=== PATIENT | male | born 1955 | race Caucasian/White ===

== ENCOUNTER → 2018-04-07 | Outpatient (CLI) | payer OTHER ==
[~2018-04-07] MED LIST: CHOL2000 PO; LACT1CAP35 PO; MAGN250T2 PO; PARO10TA56 PO; ROSU10TA PO
[2018-04-07 09:31] LABS: BASOPHILS # (AUTO) 0.02 x10^3/uL (0-0.1); BASOPHILS % (AUTO) 0 % (0-1); EOSINOPHILS # (AUTO) 0.18 x10^3/uL (0-0.4); EOSINOPHILS % (AUTO) 4 % (1-7); LYMPHOCYTES # (AUTO) 1.37 x10^3/uL (1-3.4); LYMPHOCYTES % (AUTO) 29 % (22-44); MD NO; MEAN CORPUSCULAR HEMOGLOBIN 31.3 pg (27.5-34.5); MEAN CORPUSCULAR HGB CONC 33.7 g/dL (33.2-36.2); MEAN CORPUSCULAR VOLUME 92.8 fL (81-97); MEAN PLATELET VOLUME 7.9 fL (7.4-10.4); MONOCYTES # (AUTO) 0.51 x10^3/uL (0.2-0.8); MONOCYTES % (AUTO) 11 % (2-9); NEUTROPHILS # (AUTO) 2.66 x10^3/uL (1.8-6.8); NEUTROPHILS % (AUTO) 56 % (42-75); PLATELET COUNT 215 x10^3/uL (130-400); RED CELL DISTRIBUTION WIDTH 13.1 % (9.4-14.8)
[2018-04-07 09:38] LABS: INTERNATIONAL NORMALIZED RATIO 0.98 (0.93-1.1); PROTHROMBIN TIME 10.4 Seconds (9.6-11.5)
[2018-04-07 09:39] LABS: MICROSCOPIC NOT IND
[2018-04-07 09:42] LABS: CULTURE INDICATED? NO
[2018-04-07 10:27] LABS: ANION GAP 4 mmol/L (5-15); CALCIUM 9.1 mg/dL (8.5-10.1); CHLORIDE 105 mmol/L (98-107)
[2018-04-07 10:31] LABS: ALANINE AMINOTRANSFERASE 64 U/L (12-78); ALKALINE PHOSPHATASE 56 U/L (45-117); BILIRUBIN,TOTAL 0.6 mg/dL (0.2-1.0); CREATININE 0.88 mg/dL (0.7-1.3); TOTAL PROTEIN 7.7 g/dL (6.4-8.2)
== END | disposition home or self-care (01) ==
LOC: STAR 08:08
PROVIDERS: ATTEND Neurological Surgery
DX: Z01.818 Encounter for other preprocedural examination (principal); M48.062 Spinal stenosis, lumbar region with neurogenic claudication; M54.17 Radiculopathy, lumbosacral region; M48.07 Spinal stenosis, lumbosacral region; M43.10 Spondylolisthesis, site unspecified; M54.16 Radiculopathy, lumbar region
CPT/HCPCS: 36415; 80053; 81003; 85025; 85610; 85730; 93005

== ENCOUNTER 2018-04-19 06:16 | Inpatient (IN) | payer OTHER ==
[~2018-04-19] VITALS: Ht 188 cm; Wt 92.0 kg
[2018-04-19] MEDS ORDERED: LACTATED RINGERS 1,000 ML IV SCH (07:12)
[2018-04-19] MEDS ORDERED: ACETAMINOPHEN 500 MG TABLET PO ONE (07:30)
[2018-04-19] MEDS ORDERED: OXYcodone IR 5MG TABLET PO ONE (07:30)
[2018-04-19] MEDS ORDERED: GABAPENTIN 300 MG CAPSULE PO ONE (07:30)
[2018-04-19] MEDS ORDERED: CEFAZOLIN 1,000 MG ONE (08:32)
[2018-04-19] MEDS ORDERED: SUCCINYLCHOLINE 20 MG/ML, 10ML ONE (08:32)
[2018-04-19] MEDS ORDERED: ONDANSETRON 2MG/ML, 2ML ONE (08:32)
[2018-04-19] MEDS ORDERED: DEXAMETHASONE 4 MG/ML, 1ML ONE (08:32)
[2018-04-19] MEDS ORDERED: NEOSTIGMINE 1 MG/ML, 10ML ONE (08:32)
[2018-04-19] MEDS ORDERED: PROPOFOL 10 MG/ML, 20ML ONE (08:32)
[2018-04-19] MEDS ORDERED: ROCURONIUM 10 MG/ML,10ML ONE (08:32)
[2018-04-19] MEDS ORDERED: GLYCOPYRROLATE 0.2MG/1ML, 5ML ONE (08:32)
[2018-04-19] MEDS ORDERED: FENTANYL PF 250 MCG/5ML ONE (08:40)
[2018-04-19] MEDS ORDERED: HYDROmorphone 2 MG/ML, 1ML IVPush PRN (09:30)
[2018-04-19] MEDS ORDERED: LABETALOL 5MG/ML, 20ML IV PRN (09:30)
[2018-04-19] MEDS ORDERED: DIPHENHYDRAMINE 50 MG/ML, 1ML IVPush PRN (09:30)
[2018-04-19] MEDS ORDERED: HALOPERIDOL 5 MG/ML IV PRN (09:30)
[2018-04-19] MEDS ORDERED: PROCHLORPERAZINE 5 MG/ML, 2ML IV PRN (09:30)
[2018-04-19] MEDS ORDERED: hydrALAzine 20 MG/ML, 1ML IV PRN (09:30)
[2018-04-19] MEDS ORDERED: OXYcodone 5 MG/5 ML ORAL.SOL UDC PO PRN (09:30)
[2018-04-19] MEDS ORDERED: PROMETHAZINE 25 MG/ML, 1ML IV PRN (09:30)
[2018-04-19] MEDS ORDERED: EPHEDRINE 50 MG/ML, 1ML IVPush PRN (09:30)
[2018-04-19] MEDS ORDERED: METOPROLOL 1 MG/ML, 5ML IV PRN (09:30)
[2018-04-19] MEDS ORDERED: MEPERIDINE/PF 25MG/0.5ML IVPush PRN (09:30)
[2018-04-19] MEDS ORDERED: THROMBIN 5,000 UNIT VIAL TP ONE ×2 (09:34→11:34)
[2018-04-19] MEDS ORDERED: BACITRACIN 50,000 UNIT IRRIG ONE (09:34)
[2018-04-19] MEDS ORDERED: BUPIVACAINE/PF-EPI 0.5% 1:200K INFIL ONE (09:35)
[2018-04-19] MEDS ORDERED: PHARMACY MAY ADJ FOR RENAL FX MC PRN (11:30)
[2018-04-19] MEDS ORDERED: DIPHENHYDRAMINE 50 MG CAPSULE PO PRN (11:30)
[2018-04-19] MEDS ORDERED: BISACODYL 10 MG SUPP PR PRN (11:30)
[2018-04-19] MEDS ORDERED: LABETALOL 5MG/ML, 20ML IVPush PRN (11:30)
[2018-04-19] MEDS ORDERED: PROMETHAZINE 25 MG/ML, 1ML IM PRN (11:30)
[2018-04-19] MEDS ORDERED: morphine SULFATE 10 MG/ML, 1ML IVPush PRN (11:30)
[2018-04-19] MEDS ORDERED: MAGNESIUM HYDROXIDE 8%, 30ML UDC PO PRN (11:30)
[2018-04-19] MEDS ORDERED: HYDROcodone/APAP 10/325 MG TABLET PO PRN (11:30)
[2018-04-19] MEDS ORDERED: ONDANSETRON 2MG/ML, 2ML IVPush PRN (11:30)
[2018-04-19] MEDS ORDERED: METHOCARBAMOL 750 MG TABLET PO PRN (11:30)
[2018-04-19] MEDS ORDERED: VANCOMYCIN 1,000 MG ONE (11:34)
[2018-04-19] MEDS ORDERED: BUPIVACAINE/PF-EPI 0.5% 1:200K ONE (11:35)
[2018-04-19] MEDS ORDERED: BACITRACIN 50,000 UNIT ONE (11:35)
[2018-04-19] MEDS ORDERED: OXYcodone 5 MG/5 ML ORAL.SOL UDC ONE (11:57)
[2018-04-19] MEDS ORDERED: FENTANYL PF 100 MCG/2ML ONE (11:57)
[2018-04-19] MEDS: FENTANYL PF 100 MCG/2ML IV PRN ×4 (12:00→12:35)
[2018-04-19] MEDS: CEFAZOLIN PMX 1GM/50ML 50 ML IVPB SCH ×2 (15:00→23:32)
[2018-04-19] MEDS: NS + 20MEQ KCL 1,000 ML IV SCH (15:54)
[2018-04-19 20:21] VITALS: BP 106/70
[2018-04-19] MEDS: ATORVASTATIN 20 MG TABLET PO SCH (21:00)
[2018-04-19] MEDS ORDERED: TEMPLATE NON-FORMULARY MED. (Rosuvastatin Calcium** (Crestor**) 10 MG) PO SCH (21:00)
[2018-04-19] MEDS: SODIUM CHLORIDE FLUSH 10ML SYR IVF SCH (21:00)
[2018-04-19 23:39] VITALS: BP 107/67
[2018-04-20] MEDS: NS + 20MEQ KCL 1,000 ML IV SCH ×3 (01:46→20:00)
[2018-04-20 04:24] VITALS: BP 108/78
[2018-04-20 05:15] LABS: BASOPHILS # (AUTO) 0.01 x10^3/uL (0-0.1); BASOPHILS % (AUTO) 0 % (0-1); EOSINOPHILS % (AUTO) 0 % (1-7); LYMPHOCYTES # (AUTO) 0.78 x10^3/uL (1-3.4); LYMPHOCYTES % (AUTO) 7 % (22-44); MD NO; MEAN CORPUSCULAR HEMOGLOBIN 31.2 pg (27.5-34.5); MEAN CORPUSCULAR HGB CONC 33.5 g/dL (33.2-36.2); MEAN CORPUSCULAR VOLUME 93.1 fL (81-97); MONOCYTES # (AUTO) 0.87 x10^3/uL (0.2-0.8); MONOCYTES % (AUTO) 7 % (2-9); NEUTROPHILS # (AUTO) 10.49 x10^3/uL (1.8-6.8); NEUTROPHILS % (AUTO) 86 % (42-75); PLATELET COUNT 179 x10^3/uL (130-400); RED BLOOD COUNT 3.91 x10^6/uL (4.38-5.82); RED CELL DISTRIBUTION WIDTH 13.6 % (9.4-14.8)
[2018-04-20 05:19] LABS: ALBUMIN 3.1 g/dL (3.4-5.0); ANION GAP 6 mmol/L (5-15); CALCIUM 8.4 mg/dL (8.5-10.1); CHLORIDE 106 mmol/L (98-107)
[2018-04-20 05:20] LABS: CREATININE 0.77 mg/dL (0.7-1.3)
[2018-04-20 07:03] VITALS: BP 109/67
[2018-04-20] MEDS ORDERED: PAROXETINE 20 MG TABLET ONE (08:58)
[2018-04-20] MEDS: SODIUM CHLORIDE FLUSH 10ML SYR IVF SCH ×2 (09:04→20:09)
[2018-04-20] MEDS: MAGNESIUM OXIDE 400 MG TABLET PO SCH (09:04)
[2018-04-20] MEDS: PAROXETINE 10 MG TABLET PO SCH (09:04)
[2018-04-20] MEDS: CHOLECALCIFEROL 1,000 UNIT TABLET PO SCH (09:04)
[2018-04-20] MEDS: HYDROcodone/APAP 5/325 TABLET PO PRN ×4 (09:04→21:21)
[2018-04-20] MEDS: LACTOBACILLUS CHEW TABLET PO SCH (09:04)
[2018-04-20] MEDS: SENNA/DOCUSATE TABLET PO PRN (13:46)
[2018-04-20 14:02] VITALS: BP 108/66
[2018-04-20 19:10] VITALS: BP 106/56
[2018-04-20] MEDS: ATORVASTATIN 20 MG TABLET PO SCH (20:10)
[2018-04-21] MEDS: HYDROcodone/APAP 5/325 TABLET PO PRN ×5 (01:46→23:59)
[2018-04-21 03:32] VITALS: BP 107/68
[2018-04-21 04:59] LABS: BASOPHILS # (AUTO) 0.02 x10^3/uL (0-0.1); BASOPHILS % (AUTO) 0 % (0-1); EOSINOPHILS # (AUTO) 0.11 x10^3/uL (0-0.4); EOSINOPHILS % (AUTO) 1 % (1-7); LYMPHOCYTES # (AUTO) 2.18 x10^3/uL (1-3.4); LYMPHOCYTES % (AUTO) 22 % (22-44); MD NO; MEAN CORPUSCULAR HEMOGLOBIN 31.7 pg (27.5-34.5); MEAN CORPUSCULAR HGB CONC 33.8 g/dL (33.2-36.2); MEAN CORPUSCULAR VOLUME 93.6 fL (81-97); MEAN PLATELET VOLUME 8.2 fL (7.4-10.4); MONOCYTES # (AUTO) 1.01 x10^3/uL (0.2-0.8); MONOCYTES % (AUTO) 10 % (2-9); NEUTROPHILS # (AUTO) 6.74 x10^3/uL (1.8-6.8); NEUTROPHILS % (AUTO) 67 % (42-75); PLATELET COUNT 167 x10^3/uL (130-400); RED BLOOD COUNT 3.85 x10^6/uL (4.38-5.82)
[2018-04-21] MEDS: NS + 20MEQ KCL 1,000 ML IV SCH ×3 (06:00→19:29)
[2018-04-21 06:57] VITALS: BP 108/67
[2018-04-21] MEDS ORDERED: PAROXETINE 20 MG TABLET ONE (08:09)
[2018-04-21] MEDS: MAGNESIUM OXIDE 400 MG TABLET PO SCH (08:12)
[2018-04-21] MEDS: LACTOBACILLUS CHEW TABLET PO SCH (08:12)
[2018-04-21] MEDS: PAROXETINE 10 MG TABLET PO SCH (08:13)
[2018-04-21] MEDS: CHOLECALCIFEROL 1,000 UNIT TABLET PO SCH (08:13)
[2018-04-21] MEDS: SODIUM CHLORIDE FLUSH 10ML SYR IVF SCH ×2 (09:00→19:28)
[2018-04-21] MEDS ORDERED: HYDR-3240 PO (09:13)
[2018-04-21] MEDS ORDERED: CYCL5TAB PO (09:13)
[2018-04-21] MEDS: CYCLOBENZAPRINE 10 MG TABLET PO PRN (11:54)
[2018-04-21 14:15] VITALS: BP 119/55
[2018-04-21 19:09] VITALS: BP 121/53
[2018-04-21] MEDS: SENNA/DOCUSATE TABLET PO PRN (19:28)
[2018-04-21] MEDS: ATORVASTATIN 20 MG TABLET PO SCH (19:29)
[2018-04-22 01:32] VITALS: BP 106/59
[2018-04-22] MEDS: HYDROcodone/APAP 5/325 TABLET PO PRN ×3 (04:00→12:22)
[2018-04-22 05:26] LABS: BASOPHILS # (AUTO) 0.04 x10^3/uL (0-0.1); BASOPHILS % (AUTO) 1 % (0-1); EOSINOPHILS # (AUTO) 0.12 x10^3/uL (0-0.4); EOSINOPHILS % (AUTO) 2 % (1-7); LYMPHOCYTES # (AUTO) 1.97 x10^3/uL (1-3.4); LYMPHOCYTES % (AUTO) 28 % (22-44); MD NO; MEAN CORPUSCULAR HEMOGLOBIN 32.4 pg (27.5-34.5); MEAN CORPUSCULAR HGB CONC 34.9 g/dL (33.2-36.2); MEAN CORPUSCULAR VOLUME 92.9 fL (81-97); MONOCYTES # (AUTO) 0.93 x10^3/uL (0.2-0.8); MONOCYTES % (AUTO) 13 % (2-9); NEUTROPHILS % (AUTO) 57 % (42-75); PLATELET COUNT 171 x10^3/uL (130-400); RED BLOOD COUNT 3.45 x10^6/uL (4.38-5.82)
[2018-04-22 07:15] VITALS: BP 107/64
[2018-04-22] MEDS ORDERED: PAROXETINE 20 MG TABLET ONE (08:05)
[2018-04-22] MEDS: PAROXETINE 10 MG TABLET PO SCH (08:10)
[2018-04-22] MEDS: SODIUM CHLORIDE FLUSH 10ML SYR IVF SCH (08:10)
[2018-04-22] MEDS: MAGNESIUM OXIDE 400 MG TABLET PO SCH (08:10)
[2018-04-22] MEDS: CHOLECALCIFEROL 1,000 UNIT TABLET PO SCH (08:10)
[2018-04-22] MEDS: LACTOBACILLUS CHEW TABLET PO SCH (08:10)
[2018-04-22] MEDS: NS + 20MEQ KCL 1,000 ML IV SCH (11:34)
[2018-04-22 12:14] VITALS: BP 123/65
[2018-04-22] MEDS: CYCLOBENZAPRINE 10 MG TABLET PO PRN (12:23)
== END 2018-04-22 12:45 | disposition home or self-care (01) | DRG 460 ==
LOC: ORIP 06:16 → 4NOR 13:43
PROVIDERS: ADMIT Neurological Surgery; ATTEND Neurological Surgery
PROC: 0QH004Z Insertion of Internal Fixation Device into Lumbar Vertebra, Open Approach (ICD-10-PCS; 2018-04-19)
PROC: 0SG0071 Fusion of Lumbar Vertebral Joint with Autologous Tissue Substitute, Posterior Approach, Posterior Column, Open Approach (ICD-10-PCS; 2018-04-19)
PROC: 0QH104Z Insertion of Internal Fixation Device into Sacrum, Open Approach (ICD-10-PCS; 2018-04-19)
PROC: 0SG3071 Fusion of Lumbosacral Joint with Autologous Tissue Substitute, Posterior Approach, Posterior Column, Open Approach (ICD-10-PCS; principal; 2018-04-19 08:30)
DX: M48.07 Spinal stenosis, lumbosacral region (principal); M41.87 Other forms of scoliosis, lumbosacral region; F41.9 Anxiety disorder, unspecified; F32.9 Major depressive disorder, single episode, unspecified; G62.9 Polyneuropathy, unspecified; M43.17 Spondylolisthesis, lumbosacral region; E78.5 Hyperlipidemia, unspecified; K21.9 Gastro-esophageal reflux disease without esophagitis; G47.33 Obstructive sleep apnea (adult) (pediatric); I25.10 Atherosclerotic heart disease of native coronary artery without angina pectoris; M54.17 Radiculopathy, lumbosacral region; Z98.1 Arthrodesis status; Z88.2 Allergy status to sulfonamides; Z82.61 Family history of arthritis; Z83.3 Family history of diabetes mellitus; Z82.49 Family history of ischemic heart disease and other diseases of the circulatory system; Z82.3 Family history of stroke; Z80.9 Family history of malignant neoplasm, unspecified; Z91.018 Allergy to other foods
CPT/HCPCS: 36415; 72100; J3490; 80048; 82040; 85025; 86850; 86900; C1713; G0378; J0690; J1100; J2270; J2405; J2704; J2710; J3010; J3370; J3480; C1762; J0330; J7120